=== PATIENT | female | born 1965 | race Caucasian/White ===

== ENCOUNTER → 2018-03-11 | Outpatient (CLI) | payer BC ==
--- NOTE | 2018-03-11 11:34 | Diagnostic Imaging Report ---
PROCEDURE:ABDOMINAL ULTRASOUND COMPARISON:CT of the abdomen performed in 2006 not available for review. INDICATIONS:RUQ PAIN TECHNIQUE: Talamantes-scale and color sonographic images were obtained of the abdomen in transverse and sagittal planes. FINDINGS: Liver: 11.7 cm in length in right midclavicular line. Increased echogenicity. A septated cyst in the left lobe measures 11 x 18 x 19 mm.. Main portal vein: 0.9 cm, hepatopetal flow Gallbladder: Present. No evidence of gallstone, soft tissue mass, gallbladder wall thickening, or pericholecystic fluid Common Bile Duct: 0.3 cm Sonographic Wan's sign: Negative Right kidney: 10.6 cm. The echotexture is normal. Hyperechoic, non-shadowing focus in the posterior interpolar cortex measures 1.8 x 10 mm. Left kidney: 10.1 cm. The echotexture is normal. No mass or hydronephrosis. No calculi. Spleen: 8.9 cm in length. No mass. Pancreas: The visualized portions are unremarkable. Inferior vena cava: Patent Aorta: Within normal limits Ascites: None CONCLUSION: 1. Septated cyst in the liver as described above. Increased hepatic echotexture suggestive of hepatocellular dysfunction, most commonly steatosis. 2. Hyperechoic focus in the right kidney may represent a calcification or cyst with posterior acoustic enhancement. 3. Normal gallbladder and biliary tree. Dictated by: Arielle Rodriguez M.D. on 03/11/2018 at 11:38 Electronically approved by: Arielle Rodriguez M.D. on 03/11/2018 at 11:38
== END ==
LOC: US 07:44
PROVIDERS: ATTEND Family Medicine
DX: R10.11 Right upper quadrant pain (principal)
CPT/HCPCS: 76700